=== PATIENT | female | born 1935 | race Caucasian/White ===

== ENCOUNTER 2017-06-20 14:42 | Emergency (ER) | payer MEDICARE, OTHER ==
[~2017-06-20] VITALS: Ht 149.9 cm; Wt 56.5 kg
[~2017-06-20 14:42] MED LIST: ASPI-130 PO; CALC-179 PO; FENT75DI TD; GLUC500C4 PO; LACTCAP7 PO; LEVO88TA21 PO; LORTA10 PO; LOVA10TA PO
[2017-06-20 14:55] VITALS: BP 141/72; PULSE 61; RESP 17; TEMP 98.7; O2SAT 96
--- NOTE | 2017-06-20 16:07 | PD ---
HPI Chief Complaint: Fall Time Seen by Provider: 15:40 Travel History International Travel<30 days: No Contact w/Intl Traveler<30days: No Traveled to known affect area: No History of Present Illness HPI This is a well 81-year-old woman who presents to the emergency department with back pain after she fell. She was at a sandwich shop where she got unsteady and fell against a counter. She has pain in her left lower back. Bystanders state that she hit her head but she doesn't really recall. No LOC. No head pain now. She is a history of A. fib and is on a full dose aspirin daily. Otherwise has been feeling generally well and healthy. No other complaints. History Past Medical History Narrative Medical A. fib, on aspirin Arthritis, on chronic opiates Tetanus Vaccination: > 5 Years Influenza Vaccination: Yes Social History Alcohol Use: Yes (occ) Tobacco Use: No Allergies-Medications (Allergen,Severity, Reaction): Coded Allergies: No Known Allergies (Unverified , 06/17/12) Reported Meds & Prescriptions Reported Meds & Active Scripts Active Reported Probiotic (Lactobacillus) Cap 1 Cap PO DAILY Aspirin EC Low Dose (Aspirin) 81 Mg Tab 81 Mg PO DAILY Calcium (Calcium & Phosphorus W/ Vitami) Tab 1 Tab PO DAILY Glucosamine/Chondroitin P (Glucosamine-Chondroitin) 1 Tab Tab 1 Tab PO DAILY Levoxyl (Levothyroxine Sodium) 88 Mcg Tab 88 Mcg PO DIRECTED 1/2 dose 3 times a week Lovastatin 10 Mg Tab 10 Mg PO HS Lortab 10/325 Tab (Hydrocodone-Acetaminophen) 10 Mg/325 Mg Tab 1 Tab PO Q6HPRN Duragesic 75 Mcg/Hr (Fentanyl) 75 Mcg/Hr Patch 1 Patch TD Q3D Review of Systems Except as stated in HPI: all other systems reviewed are Neg Physical Exam Narrative GENERAL: Well-appearing 81 year-old woman, no acute distress. SKIN: Focused skin assessment warm/dry. HEAD: Normocephalic. I don't see definite evidence of trauma. EYES: Pupils equal and round. No scleral icterus. No injection or drainage. ENT: No nasal bleeding or discharge. Mucous membranes pink and moist. NECK: No midline tenderness. Painless range of motion. CARDIOVASCULAR: Regular rate and rhythm. No murmur appreciated. RESPIRATORY: No accessory muscle use. Clear to auscultation. Breath sounds equal bilaterally. GASTROINTESTINAL: Abdomen soft, non-tender, nondistended. Hepatic and splenic margins not palpable. MUSCULOSKELETAL: No obvious deformities. No edema. She has paraspinous muscle tenderness in the left lower back. There is no midline tenderness step-off deformities or ecchymosis or bruising. NEUROLOGICAL: Awake and alert. No obvious cranial nerve deficits. Motor grossly within normal limits. Normal speech. PSYCHIATRIC: Appropriate mood and affect; insight and judgment normal. Data Data Last Documented VS Vital Signs Date Time Temp Pulse Resp B/P (MAP) Pulse Ox O2 Delivery O2 Flow Rate FiO2 06/20/17 15:11 Room Air 06/20/17 14:55 98.7 61 17 141/72 (95) 96 Orders Orders Spine, Lumbar Comp W/Obliq (06/20/17 ) Ct Brain W/O Iv Contrast(Rout) (06/20/17 ) MDM Medical Decision Making Medical Screen Exam Complete: Yes Emergency Medical Condition: Yes Differential Diagnosis Head injury, neck injury, back injury, other Narrative Course Medical decision making This is an 81 year-old woman presents emergent arm for valuation fall. She has left paraspinous back tenderness about think she likely has a back contusion. We'll check x-ray but doubt bony injury. We'll also check CT had given concern for head injury on full dose aspirin daily. Gurdeep Angel MD Jun 20, 2017 16:07
--- NOTE | 2017-06-20 16:29 | RADRPT ---
EXAM DATE/TIME: 06/20/2017 16:03 [facility] COMPARISON: No previous studies available for comparison. INDICATIONS : Fall, hit head. RADIATION DOSE: 58.34 CTDIvol (mGy) MEDICAL HISTORY : Cardiovascular disease. RA SURGICAL HISTORY : Hysterectomy. ENCOUNTER: Initial ACUITY: 1 day PAIN SCALE: 4/10 LOCATION: cranial TECHNIQUE: Multiple contiguous axial images were obtained of the head. Using automated exposure control and adj ustment of the mA and/or kV according to patient size, radiation dose was kept as low as reasonably a chievable to obtain optimal diagnostic quality images. DICOM format image data is available electro nically for review and comparison. FINDINGS: CEREBRUM: The ventricles are normal for age. No evidence of midline shift, mass lesion, hemorrhage or acute in farction. No extra-axial fluid collections are seen. POSTERIOR FOSSA: The cerebellum and brainstem are intact. The 4th ventricle is midline. The cerebellopontine angle i s unremarkable. EXTRACRANIAL: The visualized portion of the orbits is intact. SKULL: The calvaria is intact. No evidence of skull fracture. 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 No evidence of acute intracranial pathology. No masses are identified. Chaz Maxwell MD on June 20, 2017 at 16:26 Board Certified Radiologist. This report was verified electronically.
--- NOTE | 2017-06-20 16:40 | RADRPT ---
EXAM DATE/TIME: 06/20/2017 15:49 [facility] COMPARISON: No previous studies available for comparison. INDICATIONS : Fell, complains of low back pain. MEDICAL HISTORY : None. SURGICAL HISTORY : Discectomy, lumbar. ENCOUNTER: Initial ACUITY: 1 day PAIN SCORE: 9/10 LOCATION: Lumbar FINDINGS: The vertebral bodies are normal in alignment on the lateral view. Moderate scoliotic deformity is pre sent to the left with a rotatory component with the apex at L3. There is multilevel disc space narrow ing and marginal osteophyte formation maximal at L5-S1. There is multilevel facet arthritis maximal a t L5-S1. Osseous structures are osteopenic. Prominent vascular calcification is present. CONCLUSION: 1. Severe degenerative changes as described above. There is no evidence of acute fracture. Chaz Maxwell MD on June 20, 2017 at 16:38 Board Certified Radiologist. This report was verified electronically.
[2017-06-20] MEDS ORDERED: NORC5TAB PO (16:49)
--- NOTE | 2017-06-20 16:49 | PD ---
Physical Exam Date Seen by Provider: Jun 20, 2017 Narrative Care was assumed from Dr. Angel at 4 PM pending x-ray studies. The patient had had a fall. Data Data Last Documented VS Vital Signs Date Time Temp Pulse Resp B/P (MAP) Pulse Ox O2 Delivery O2 Flow Rate FiO2 06/20/17 15:11 Room Air 06/20/17 14:55 98.7 61 17 141/72 (95) 96 Orders Orders Spine, Lumbar Comp W/Obliq (06/20/17 ) Ct Brain W/O Iv Contrast(Rout) (06/20/17 ) MDM Supervised Visit with SHIVANI: No Narrative Course CT head: No evidence of acute intracranial pathology. No masses are identified. L spine: Severe degenerative changes as described above. There is no evidence of acute fracture. Diagnosis Primary Impression: Scalp contusion Qualified Codes: S00.03XA - Contusion of scalp, initial encounter Additional Impression: Back pain Qualified Codes: M54.5 - Low back pain Med/Other Pt SpecificInfo: Prescription(s) given Scripts Hydrocodone-Acetaminophen ([place]) 5-325 mg Tab 1 TAB PO Q4H Y for PAIN, #12 TAB 0 Refills Prov: Adry Karimi MD 06/20/17 Disposition: 01 DISCHARGE HOME Condition: Stable Adry Karimi MD Jun 20, 2017 16:49
[2017-06-20 16:58] VITALS: BP 148/72; PULSE 65; RESP 18; O2SAT 97
[2017-06-20] MEDS ORDERED: ACETAMINOPHEN/HYDROcodone 325 MG/5 MG TAB PO ONE (17:00)
[2017-06-20] MEDS ORDERED: ASPI325T PO (19:17)
[2017-06-20] MEDS ORDERED: CALC1TAB12 PO (19:17)
[2017-06-20] MEDS ORDERED: LEVO88TA2 PO (19:17)
[2017-06-20] MEDS ORDERED: HYDR-3580 PO (19:17)
[2017-06-20] MEDS ORDERED: SACC1CAP3 PO (19:17)
== END 2017-06-20 17:35 | disposition home or self-care (01) ==
LOC: PHED 14:42
DX: S00.03XA Contusion of scalp, initial encounter (principal); I48.91 Unspecified atrial fibrillation; W19.XXXA Unspecified fall, initial encounter; Z79.82 Long term (current) use of aspirin
CPT/HCPCS: 70450; 72110